=== PATIENT | female | born 1970 | race Caucasian/White ===

== ENCOUNTER 2023-03-09 08:01 | Inpatient (IN) | payer BC ==
[2023-03-09] MEDS ORDERED: Vancomycin 1 GM VIAL ONE (09:19)
[2023-03-09 09:38] LABS: #Eosinphils 0.1 thou/uL (0.0-0.7); #Monocytes 0.4 thou/uL (0.11-0.59); %Basophils 0.3 % (0.0-1.0); %Eosinophils 3.4 % (0.0-10.0); %Lymphocytes 28.6 % (21.0-51.0); %Monocytes 11.4 % (0.0-10.0); Hemoglobin 10.8 g/dL (12.0-16.0); Mean Corpuscular HGB CONC 30.9 g/dL (32.0-36.0); Mean Corpuscular Hemoglobin 23.9 pg (27.0-31.0); Mean Corpuscular Volume 77.4 fl (78.0-98.0); Mean Platelet Volume 9.5 fL (7.4-10.4); Platelet Count 203 10x3/uL (130-400); RBC Distribution Width 15.6 % (11.5-14.5); Red Blood Cell (RBC) Count 4.52 mill/uL (4.20-5.40); White Blood Cell (WBC) Count 3.5 10x3/uL (4.8-10.8)
[2023-03-09] MEDS ORDERED: HYDROmorphone 0.5 MG/0.5 ML SYRINGE ONE (09:51)
[2023-03-09] MEDS ORDERED: CEFAZOLIN 2 GM VIAL ONE (09:55)
[2023-03-09] MEDS ORDERED: Sodium Chloride 0.9% 100 ML ONE (09:55)
[2023-03-09] MEDS ORDERED: Ketamine 50 MG/ML (10ML VIAL) ONE (09:58)
[2023-03-09] MEDS ORDERED: Rocuronium Bromide 10 MG/ML (10ML VIAL) ONE (10:04)
[2023-03-09] MEDS ORDERED: PHENYLEPHRINE-NS 100 MCG/ML 10 ML SYRINGE ONE (10:04)
[2023-03-09] MEDS ORDERED: Ketorolac Tromethamine 30 MG/ML VIAL ONE (10:04)
[2023-03-09] MEDS ORDERED: ePHEDrine Sulfate 50 MG/10 ML VIAL ONE (10:04)
[2023-03-09] MEDS ORDERED: Lidocaine 1% PF 5 ML VIAL ONE (10:04)
[2023-03-09] MEDS ORDERED: PROPOFOL 200 MG/20 ML VIAL ONE (10:04)
[2023-03-09] MEDS ORDERED: Ondansetron PF 4 MG/2 ML Vial ONE (10:04)
[2023-03-09] MEDS ORDERED: Dexamethasone 20 MG/5 ML VIAL ONE (10:04)
[2023-03-09 10:06] LABS: Anion Gap 10 mmol/L (10-20); BUN (Urea Nitrogen) 15 mg/dL (9.8-20.1); Calc. Creatinine Clearance 146 mL/min (70-130); Calcium 9.7 mg/dL (7.8-10.44); Carbon Dioxide 25 mmol/L (22-29); Chloride 108 mmol/L (98-107); Estimated GFR 103; Glucose 82 mg/dL (70-105); Potassium 4.3 mmol/L (3.5-5.1); Sodium 139 mmol/L (136-145)
[2023-03-09] MEDS ORDERED: Mag-Al 1200 mg/1200 mg/30 ML UDCUP PO PRN (11:35)
[2023-03-09] MEDS ORDERED: traMADol HCl 50 MG TAB PO PRN (11:35)
[2023-03-09] MEDS ORDERED: diphenhydrAMINE 50 MG/ML VIAL IVP PRN (11:35)
[2023-03-09] MEDS ORDERED: Ondansetron PF 4 MG/2 ML Vial IVP PRN (11:35)
[2023-03-09] MEDS ORDERED: Morphine 2 MG/ML VIAL SLOW IVP PRN (11:35)
[2023-03-09] MEDS ORDERED: Promethazine 25 MG TAB PO PRN (11:35)
[2023-03-09] MEDS ORDERED: Milk Of Magnesia 30 ML UDCUP PO PRN (11:35)
[2023-03-09] MEDS ORDERED: Cyclobenzaprine 10 MG TAB PO PRN (11:35)
[2023-03-09] MEDS ORDERED: Ondansetron HCl/PF 4 MG/2 ML Vial IVP PRN (11:50)
[2023-03-09] MEDS ORDERED: HYDROmorphone 2 MG/ML VIAL SLOW IVP PRN (11:50)
[2023-03-09] MEDS ORDERED: Promethazine HCl 25 MG/ML VIAL IM PRN (11:50)
[2023-03-09] MEDS ORDERED: Meperidine HCl/PF 25 MG/ML VIAL SLOW IVP PRN (11:50)
[2023-03-09] MEDS ORDERED: PACU-Morphine 4MG/ML VIAL SLOW IVP PRN (11:50)
[2023-03-09] MEDS ORDERED: fentaNYL 50 mcg/mL 1 mL Vial ONE ×2 (12:00→12:18)
[2023-03-09] MEDS: Sodium Chloride 0.9% 1,000 ML IV SCH (14:18)
[2023-03-09 15:58] VITALS: BMI 33.3
[2023-03-09] MEDS: CEFAZOLIN 2 GM in Sodium Chloride 0.9% 100 ML IVPB SCH (16:18)
[2023-03-09] MEDS ORDERED: Acetaminophen 325 MG TAB PO PRN (17:18)
[2023-03-09] MEDS ORDERED: Sodium Chloride 0.9% 500 ML IVPB SCH (17:30)
[2023-03-09] MEDS: metFORMIN 500 MG TAB PO SCH (21:34)
[2023-03-09] MEDS: Acetaminophen/Codeine 30-300mg Tablet PO PRN (21:34)
[2023-03-10] MEDS: Sodium Chloride 0.9% 1,000 ML IV SCH ×2 (02:35→12:37)
[2023-03-10] MEDS: CEFAZOLIN 2 GM in Sodium Chloride 0.9% 100 ML IVPB SCH ×3 (02:43→18:02)
[2023-03-10] MEDS: Acetaminophen/Codeine 30-300mg Tablet PO PRN ×4 (02:43→18:01)
[2023-03-10] MEDS: Gabapentin 300 MG CAP PO SCH (09:06)
[2023-03-10] MEDS: Lisinopril 10 MG TAB PO SCH (09:07)
[2023-03-10] MEDS: Sertraline 100 MG TAB PO SCH (09:07)
[2023-03-10] MEDS: Oxybutynin ER 5 MG TAB PO SCH (09:07)
[2023-03-10] MEDS: metFORMIN 500 MG TAB PO SCH (20:43)
[2023-03-11] MEDS: CEFAZOLIN 2 GM in Sodium Chloride 0.9% 100 ML IVPB SCH ×2 (02:18→09:30)
[2023-03-11] MEDS: Acetaminophen/Codeine 30-300mg Tablet PO PRN ×2 (05:30→10:03)
[2023-03-11] MEDS: Sodium Chloride 0.9% 1,000 ML IV SCH (05:32)
[2023-03-11 05:52] VITALS: TEMP 97.6
[2023-03-11 08:33] VITALS: BP 94/61
[2023-03-11] MEDS: Gabapentin 300 MG CAP PO SCH (09:33)
[2023-03-11] MEDS: Oxybutynin ER 5 MG TAB PO SCH (09:34)
[2023-03-11] MEDS: Lisinopril 10 MG TAB PO SCH (09:35)
[2023-03-11] MEDS: Sertraline 100 MG TAB PO SCH (09:35)
== END 2023-03-11 15:00 | disposition home or self-care (01) | DRG 460 ==
LOC: SDC 08:01 → SURG B 11:39 → OBSVTOIN 03-10 10:45
PROVIDERS: ADMIT Neurological Surgery; ATTEND Neurological Surgery
PROC: 01NB0ZZ Release Lumbar Nerve, Open Approach (ICD-10-PCS; principal; 2023-03-09)
PROC: 0SG0071 Fusion of Lumbar Vertebral Joint with Autologous Tissue Substitute, Posterior Approach, Posterior Column, Open Approach (ICD-10-PCS; 2023-03-09)
PROC: 0QB00ZZ Excision of Lumbar Vertebra, Open Approach (ICD-10-PCS; 2023-03-09)
DX: M43.16 Spondylolisthesis, lumbar region (principal); G96.09 Other spinal cerebrospinal fluid leak; M48.061 Spinal stenosis, lumbar region without neurogenic claudication; Z91.040 Latex allergy status; Z90.49 Acquired absence of other specified parts of digestive tract; F41.9 Anxiety disorder, unspecified; M19.90 Unspecified osteoarthritis, unspecified site; I10 Essential (primary) hypertension; Z98.890 Other specified postprocedural states; Z79.899 Other long term (current) drug therapy
CPT/HCPCS: 36416; 80048; 85025; 93005; 93010; C1713; C1889; J1100; J1170; J1885; J2405; J2704; J3010; J3370; J3490; J7030; J7050

== ENCOUNTER 2023-03-18 15:49 | Inpatient (IN) | payer BC ==
[~2023-03-18 15:49] MED LIST: Iopamidol-370 76% 500 ML MDV (1 ML CHARGE) ONE
[2023-03-18 17:10] LABS: #Eosinphils 0.1 thou/uL (0.0-0.7); #Monocytes 0.6 thou/uL (0.11-0.59); %Basophils 0.3 % (0.0-1.0); %Eosinophils 1.5 % (0.0-10.0); %Lymphocytes 10.8 % (21.0-51.0); %Monocytes 7.4 % (0.0-10.0); %Neutrophils 79.6 % (42.0-75.0); Hematocrit 32.7 % (36.0-47.0); Hemoglobin 10.1 g/dL (12.0-16.0); Mean Corpuscular HGB CONC 30.9 g/dL (32.0-36.0); Mean Corpuscular Hemoglobin 24.1 pg (27.0-31.0); Mean Platelet Volume 8.9 fL (7.4-10.4); Platelet Count 262 10x3/uL (130-400); RBC Distribution Width 15.9 % (11.5-14.5); Red Blood Cell (RBC) Count 4.19 mill/uL (4.20-5.40); White Blood Cell (WBC) Count 7.5 10x3/uL (4.8-10.8)
[2023-03-18 17:35] LABS: ALT (SGPT) 39 U/L (8-55); AST (SGOT) 22 U/L (5-34); Albumin 4.3 g/dL (3.5-5.0); Alkaline Phosphatase 73 U/L (40-110); Anion Gap 13 mmol/L (10-20); BUN (Urea Nitrogen) 13 mg/dL (9.8-20.1); Bilirubin, Total Less than 0.2 mg/dL (0.2-1.2); Calc. Creatinine Clearance 0 mL/min (70-130); Calcium 9.8 mg/dL (7.8-10.44); Carbon Dioxide 24 mmol/L (22-29); Chloride 105 mmol/L (98-107); Estimated GFR 106; Glucose 105 mg/dL (70-105); Magnesium 1.9 mg/dL (1.6-2.6); Potassium 4.2 mmol/L (3.5-5.1); Protein, Total 6.3 g/dL (6.0-8.3); Sodium 138 mmol/L (136-145)
[2023-03-18 17:39] LABS: Troponin I Less than 0.010 ng/mL (< 0.028)
[2023-03-18 18:05] LABS: Bacteria/HPF None Seen HPF (None Seen); Bilirubin Negative (Negative); Blood, Urine Negative (Negative); CAUTI Indications for Culture Spinal Cord Injury; Clarity Clear (Clear); Glucose, Urine (Dipstick) Normal (Negative); Ketone, Urine Negative (Negative); Leukocyte Negative Leu/uL (Negative); Nitrite Negative (Negative); Protein, Urine (Dipstick) Negative (Neg-Trace); RBC/HPF 0-3 HPF (0-3); Specific Gravity, Urine 1.015 (1.002-1.036); WBC/HPF 0-3 HPF (0-3); pH, Urine 6.5 (5.0-9.0)
[2023-03-18] MEDS ORDERED: Metoclopramide HCl 10 MG/2 ML VIAL ONE (18:05)
[2023-03-18] MEDS ORDERED: diphenhydrAMINE 50 MG/ML VIAL ONE (18:05)
[2023-03-18 18:07] LABS: Urine Culture Reflex No No
[2023-03-18] MEDS ORDERED: Cephalexin 250 MG CAP ONE (18:27)
[2023-03-18] MEDS ORDERED: Acetaminophen 500 MG TAB ONE (18:28)
[2023-03-18] MEDS ORDERED: tiZANidine HCl 4 MG TAB PO SCH (18:30)
[2023-03-18 21:01] VITALS: BMI 36.6
[2023-03-18] MEDS ORDERED: Ondansetron PF 4 MG/2 ML Vial IVP PRN ×2 (21:30→21:55)
[2023-03-18] MEDS ORDERED: Ondansetron ODT 4 MG TAB SL PRN (21:30)
[2023-03-18] MEDS ORDERED: Acetaminophen 325 MG TAB PO PRN (21:30)
[2023-03-18] MEDS ORDERED: HumaLOG 300 UNITS/3 ML VIAL SC PRN ×2 (21:55)
[2023-03-18] MEDS ORDERED: Senokot S 8.6-50 MG TAB PO PRN (21:55)
[2023-03-18] MEDS ORDERED: Ondansetron ODT 4 MG TAB PO PRN (21:55)
[2023-03-18] MEDS ORDERED: hydrALAZINE 20 MG/ML VIAL SLOW IVP PRN (21:55)
[2023-03-18] MEDS ORDERED: Glucagon 1 MG/ML KIT IM PRN (21:55)
[2023-03-18] MEDS ORDERED: Aspirin Chewable 81 MG TAB PO SCH (22:30)
[2023-03-18] MEDS ORDERED: Cephalexin 250 MG CAP PO SCH (23:59)
[2023-03-19] MEDS ORDERED: Lorazepam 2 MG/ML VIAL SLOW IVP PRN (01:06)
[2023-03-19] MEDS: Acetaminophen/Codeine 30-300mg Tablet PO PRN ×3 (02:18→19:11)
[2023-03-19 05:05] LABS: #Eosinphils 0.2 thou/uL (0.0-0.7); #Monocytes 0.6 thou/uL (0.11-0.59); #Neutrophils 3.3 thou/uL (1.40-6.50); %Basophils 0.7 % (0.0-1.0); %Eosinophils 3.6 % (0.0-10.0); %Lymphocytes 25.9 % (21.0-51.0); %Monocytes 10.5 % (0.0-10.0); %Neutrophils 58.8 % (42.0-75.0); Hematocrit 29.5 % (36.0-47.0); Hemoglobin 9.2 g/dL (12.0-16.0); Mean Corpuscular HGB CONC 31.2 g/dL (32.0-36.0); Mean Corpuscular Hemoglobin 24.2 pg (27.0-31.0); Mean Corpuscular Volume 77.6 fl (78.0-98.0); Mean Platelet Volume 9.7 fL (7.4-10.4); Platelet Count 269 10x3/uL (130-400); RBC Distribution Width 15.9 % (11.5-14.5); White Blood Cell (WBC) Count 5.6 10x3/uL (4.8-10.8)
[2023-03-19 05:32] LABS: Iron 17 ug/dL (50-170); Iron Binding Capacity, Total 359 mcg/dL (265-497)
[2023-03-19 05:33] LABS: Anion Gap 12 mmol/L (10-20); BUN (Urea Nitrogen) 11 mg/dL (9.8-20.1); Calc. Creatinine Clearance 160 mL/min (70-130); Calcium 9.9 mg/dL (7.8-10.44); Carbon Dioxide 23 mmol/L (22-29); Chloride 106 mmol/L (98-107); Estimated GFR 106; Glucose 86 mg/dL (70-105); Potassium 3.9 mmol/L (3.5-5.1); Sodium 137 mmol/L (136-145)
[2023-03-19] MEDS ORDERED: Lorazepam 2 MG/ML VIAL SLOW IVP SCH ×2 (09:00)
[2023-03-19] MEDS ORDERED: Polyethylene Glycol 3350 17 GM Packet PO SCH (09:00)
[2023-03-19] MEDS ORDERED: FLU VACC QS2023-24(6MOS UP)/PF 60 MCG/0.5 ML SYRINGE IM ONE ×2 (09:00→15:53)
[2023-03-19] MEDS: Oxybutynin ER 5 MG TAB PO SCH (09:45)
[2023-03-19] MEDS: Gabapentin 300 MG CAP PO SCH (09:46)
[2023-03-19] MEDS: Aspirin 81 mg Enteric Coated Tablet PO SCH (09:46)
[2023-03-19] MEDS: Cephalexin 250 MG CAP PO SCH ×4 (09:46→20:21)
[2023-03-19] MEDS: Cholecalciferol 1,000 UNITS (25 MCG) TAB PO SCH (09:46)
[2023-03-19] MEDS: Loratadine 10 MG TAB PO SCH (09:46)
[2023-03-19] MEDS: Topiramate 25 MG TAB PO SCH (14:04)
[2023-03-19] MEDS: Sertraline 100 MG TAB PO SCH (20:20)
[2023-03-19] MEDS: metFORMIN XR 500 MG ER.TAB PO SCH (20:21)
[2023-03-19] MEDS: Acetaminophen 325 MG TAB PO PRN (20:21)
[2023-03-19] MEDS: tiZANidine HCl 4 MG TAB PO PRN (23:36)
[2023-03-20] MEDS: Acetaminophen/Codeine 30-300mg Tablet PO PRN ×3 (01:24→21:40)
[2023-03-20 04:10] LABS: #Eosinphils 0.2 thou/uL (0.0-0.7); #Monocytes 0.5 thou/uL (0.11-0.59); #Neutrophils 3.3 thou/uL (1.40-6.50); %Basophils 0.5 % (0.0-1.0); %Eosinophils 3.1 % (0.0-10.0); %Lymphocytes 29.2 % (21.0-51.0); %Neutrophils 57.7 % (42.0-75.0); Hematocrit 31.9 % (36.0-47.0); Hemoglobin 9.6 g/dL (12.0-16.0); Mean Corpuscular HGB CONC 30.1 g/dL (32.0-36.0); Mean Corpuscular Hemoglobin 23.4 pg (27.0-31.0); Mean Corpuscular Volume 77.8 fl (78.0-98.0); Mean Platelet Volume 9.3 fL (7.4-10.4); Platelet Count 304 10x3/uL (130-400); White Blood Cell (WBC) Count 5.8 10x3/uL (4.8-10.8)
[2023-03-20 04:34] LABS: Anion Gap 12 mmol/L (10-20); BUN (Urea Nitrogen) 10 mg/dL (9.8-20.1); Calc. Creatinine Clearance 153 mL/min (70-130); Calcium 10.3 mg/dL (7.8-10.44); Carbon Dioxide 25 mmol/L (22-29); Chloride 105 mmol/L (98-107); Estimated GFR 104; Glucose 102 mg/dL (70-105); Potassium 3.8 mmol/L (3.5-5.1); Sodium 138 mmol/L (136-145)
[2023-03-20] MEDS: Acetaminophen 325 MG TAB PO PRN (06:36)
[2023-03-20] MEDS: Gabapentin 300 MG CAP PO SCH (10:03)
[2023-03-20] MEDS: Cephalexin 250 MG CAP PO SCH ×4 (10:04→21:38)
[2023-03-20] MEDS: Cholecalciferol 1,000 UNITS (25 MCG) TAB PO SCH (10:04)
[2023-03-20] MEDS: Loratadine 10 MG TAB PO SCH (10:06)
[2023-03-20] MEDS: Aspirin 81 mg Enteric Coated Tablet PO SCH (10:06)
[2023-03-20] MEDS: Oxybutynin ER 5 MG TAB PO SCH (10:06)
[2023-03-20] MEDS: Topiramate 25 MG TAB PO SCH (13:32)
[2023-03-20] MEDS: tiZANidine HCl 4 MG TAB PO PRN (13:32)
[2023-03-20] MEDS ORDERED: Morphine 4 MG/ML VIAL SLOW IVP PRN (14:12)
[2023-03-20] MEDS ORDERED: Dexamethasone 10 MG/ML VIAL SLOW IVP SCH (14:30)
[2023-03-20] MEDS: Dexamethasone 4 mg/ml Vial SLOW IVP SCH (21:37)
[2023-03-20] MEDS: metFORMIN XR 500 MG ER.TAB PO SCH (21:39)
[2023-03-20] MEDS: Sertraline 100 MG TAB PO SCH (21:40)
[2023-03-21] MEDS: tiZANidine HCl 4 MG TAB PO PRN ×2 (00:24→07:55)
[2023-03-21] MEDS: Dexamethasone 4 mg/ml Vial SLOW IVP SCH ×2 (03:24→09:25)
[2023-03-21] MEDS: Acetaminophen/Codeine 30-300mg Tablet PO PRN ×2 (03:24→12:06)
[2023-03-21 05:29] LABS: #Monocytes 0.3 thou/uL (0.11-0.59); #Neutrophils 6.7 thou/uL (1.40-6.50); %Basophils 0.1 % (0.0-1.0); %Lymphocytes 8.4 % (21.0-51.0); %Monocytes 4.2 % (0.0-10.0); %Neutrophils 86.8 % (42.0-75.0); Hematocrit 32.8 % (36.0-47.0); Mean Corpuscular HGB CONC 30.5 g/dL (32.0-36.0); Mean Corpuscular Hemoglobin 23.6 pg (27.0-31.0); Mean Corpuscular Volume 77.4 fl (78.0-98.0); Mean Platelet Volume 9.2 fL (7.4-10.4); Platelet Count 374 10x3/uL (130-400); RBC Distribution Width 15.8 % (11.5-14.5); Red Blood Cell (RBC) Count 4.24 mill/uL (4.20-5.40); White Blood Cell (WBC) Count 7.7 10x3/uL (4.8-10.8)
[2023-03-21 05:52] LABS: Anion Gap 12 mmol/L (10-20); BUN (Urea Nitrogen) 10 mg/dL (9.8-20.1); Calc. Creatinine Clearance 143 mL/min (70-130); Calcium 10.6 mg/dL (7.8-10.44); Carbon Dioxide 20 mmol/L (22-29); Chloride 105 mmol/L (98-107); Estimated GFR 100; Glucose 175 mg/dL (70-105); Potassium 4.2 mmol/L (3.5-5.1); Sodium 133 mmol/L (136-145)
[2023-03-21] MEDS: Loratadine 10 MG TAB PO SCH (09:24)
[2023-03-21] MEDS: Cholecalciferol 1,000 UNITS (25 MCG) TAB PO SCH (09:25)
[2023-03-21] MEDS: Oxybutynin ER 5 MG TAB PO SCH (09:25)
[2023-03-21] MEDS: Gabapentin 300 MG CAP PO SCH (09:25)
[2023-03-21 11:47] VITALS: BP 109/55; TEMP 97.7
[2023-03-21] MEDS: Topiramate 25 MG TAB PO SCH (12:11)
== END 2023-03-21 13:53 | disposition home or self-care (01) | DRG 312 ==
LOC: ERS 15:49 → 2SE 18:50 → OBSVTOIN 03-21 12:06
PROVIDERS: ADMIT Internal Medicine; ATTEND Hospitalist
DX: R55 Syncope and collapse (principal); E87.1 Hypo-osmolality and hyponatremia; R42 Dizziness and giddiness; R73.9 Hyperglycemia, unspecified; S09.90XA Unspecified injury of head, initial encounter; I10 Essential (primary) hypertension; M06.9 Rheumatoid arthritis, unspecified; R39.15 Urgency of urination; M19.90 Unspecified osteoarthritis, unspecified site; F41.9 Anxiety disorder, unspecified; F32.A Depression, unspecified; E04.1 Nontoxic single thyroid nodule; M25.551 Pain in right hip; W18.30XA Fall on same level, unspecified, initial encounter; M54.9 Dorsalgia, unspecified; D53.9 Nutritional anemia, unspecified; Z79.899 Other long term (current) drug therapy; Z98.1 Arthrodesis status; Z91.040 Latex allergy status; Z91.018 Allergy to other foods; Z88.8 Allergy status to other drugs, medicaments and biological substances; Z88.3 Allergy status to other anti-infective agents; Z82.49 Family history of ischemic heart disease and other diseases of the circulatory system
CPT/HCPCS: 36415; 36416; 70450; 70551; 71045; 71275; 72131; 80048; 80053; 81001; 82728; 83540; 83550; 83735; 84484; 85025; 85379; 90471; 90686; 93005; 93306; 95711; 95819; 95957; 96365; 96375; 96376; G0008; G0378; J1100; J1200; J2060; J2765; Q9967

== ENCOUNTER 2023-04-05 19:47 | Inpatient (IN) | payer BC ==
[2023-04-05 20:48] LABS: #Eosinphils 0.1 thou/uL (0.0-0.7); #Monocytes 0.7 thou/uL (0.11-0.59); #Neutrophils 5.3 thou/uL (1.40-6.50); %Basophils 0.4 % (0.0-1.0); %Eosinophils 1.7 % (0.0-10.0); %Lymphocytes 16.9 % (21.0-51.0); %Monocytes 9.4 % (0.0-10.0); %Neutrophils 71.3 % (42.0-75.0); Hematocrit 37.4 % (36.0-47.0); Hemoglobin 11.7 g/dL (12.0-16.0); Mean Corpuscular HGB CONC 31.3 g/dL (32.0-36.0); Mean Corpuscular Hemoglobin 23.3 pg (27.0-31.0); Mean Corpuscular Volume 74.5 fl (78.0-98.0); Mean Platelet Volume 8.6 fL (7.4-10.4); Platelet Count 282 10x3/uL (130-400); RBC Distribution Width 15.7 % (11.5-14.5); Red Blood Cell (RBC) Count 5.02 mill/uL (4.20-5.40); White Blood Cell (WBC) Count 7.5 10x3/uL (4.8-10.8)
[2023-04-05 21:10] LABS: ALT (SGPT) 12 U/L (8-55); AST (SGOT) 13 U/L (5-34); Alkaline Phosphatase 61 U/L (40-110); Anion Gap 15 mmol/L (10-20); BUN (Urea Nitrogen) 13 mg/dL (9.8-20.1); Bilirubin, Total 0.5 mg/dL (0.2-1.2); Calc. Creatinine Clearance 0 mL/min (70-130); Calcium 11.2 mg/dL (7.8-10.44); Carbon Dioxide 25 mmol/L (22-29); Chloride 102 mmol/L (98-107); Estimated GFR 97; Globulin 2.4 g/dL (2.4-3.5); Glucose 91 mg/dL (70-105); Potassium 3.9 mmol/L (3.5-5.1); Protein, Total 7.4 g/dL (6.0-8.3); Sodium 138 mmol/L (136-145)
[2023-04-05 21:43] LABS: Anisocytosis SLIGHT = 6-15 cells HPF (0-5); CellaVision Operator ID LAB.JMM; Elliptocytes SLIGHT = 2-5 cells HPF (0-1); Platelet Adequacy Comment Platelets Normal; Polychromasia SLIGHT = 2-3 cells HPF (0-2)
[2023-04-05] MEDS ORDERED: Ondansetron PF 4 MG/2 ML Vial ONE (21:57)
[2023-04-05] MEDS ORDERED: Morphine 4 MG/ML VIAL ONE (21:57)
[2023-04-05] MEDS ORDERED: Acetaminophen 500 MG TAB ONE (21:57)
[2023-04-05] MEDS ORDERED: HYDROmorphone 0.5 MG/0.5 ML SYRINGE ONE (22:58)
[2023-04-06] MEDS ORDERED: Ondansetron PF 4 MG/2 ML Vial IVP PRN (00:30)
[2023-04-06] MEDS ORDERED: Ondansetron ODT 4 MG TAB SL PRN (00:30)
[2023-04-06] MEDS ORDERED: Acetaminophen 325 MG TAB PO PRN (00:30)
[2023-04-06 02:23] VITALS: BMI 35.6
[2023-04-06] MEDS ORDERED: Lorazepam 2 MG/ML VIAL SLOW IVP SCH (02:30)
[2023-04-06] MEDS ORDERED: Ketorolac Tromethamine 30 MG/ML VIAL IVP SCH (02:30)
[2023-04-06] MEDS: Famotidine 20 MG TAB PO SCH ×2 (07:59→23:30)
[2023-04-06] MEDS: Famotidine/PF 20 mg/2ml Vial SLOW IVP SCH ×2 (08:42→23:31)
[2023-04-06] MEDS ORDERED: Sodium Chloride 0.9% 1,000 ML IV SCH ×2 (09:15)
[2023-04-06 10:51] LABS: #Monocytes 1.2 thou/uL (0.11-0.59); #Neutrophils 15.1 thou/uL (1.40-6.50); %Basophils 0.2 % (0.0-1.0); %Lymphocytes 3.7 % (21.0-51.0); %Monocytes 7.2 % (0.0-10.0); %Neutrophils 88.4 % (42.0-75.0); Hematocrit 37.3 % (36.0-47.0); Hemoglobin 11.3 g/dL (12.0-16.0); Mean Corpuscular HGB CONC 30.3 g/dL (32.0-36.0); Mean Corpuscular Hemoglobin 23.5 pg (27.0-31.0); Mean Platelet Volume 10.9 fL (7.4-10.4); Platelet Count 219 10x3/uL (130-400); RBC Distribution Width 16.2 % (11.5-14.5); White Blood Cell (WBC) Count 17.1 10x3/uL (4.8-10.8)
[2023-04-06 11:11] LABS: Anion Gap 18 mmol/L (10-20); BUN (Urea Nitrogen) 11 mg/dL (9.8-20.1); Calc. Creatinine Clearance 144 mL/min (70-130); Calcium 10.7 mg/dL (7.8-10.44); Carbon Dioxide 17 mmol/L (22-29); Chloride 105 mmol/L (98-107); Estimated GFR 104; Glucose 151 mg/dL (70-105); Potassium 4.5 mmol/L (3.5-5.1); Sodium 135 mmol/L (136-145)
[2023-04-06 11:24] LABS: Bacteria/HPF None Seen HPF (None Seen); Bilirubin Negative (Negative); Blood, Urine Negative (Negative); CAUTI Indications for Culture Spinal Cord Injury; Clarity Clear (Clear); Glucose, Urine (Dipstick) Normal (Negative); Ketone, Urine 10 mg/dL (Negative); Leukocyte Negative Leu/uL (Negative); Nitrite Negative (Negative); Protein, Urine (Dipstick) Negative (Neg-Trace); RBC/HPF 0-3 HPF (0-3); Squamous Epithelial 0-3 HPF (0-3); Urobilinogen Normal mg/dL (Less than 2); WBC/HPF 0-3 HPF (0-3)
[2023-04-06 11:33] LABS: Urine Culture Reflex No No
[2023-04-06 11:51] LABS: Mean Corpuscular Volume 77.7 fl (78.0-98.0)
[2023-04-06] MEDS ORDERED: Non-Formulary Item 1 EACH (Topiramate [Topiramate] 50 MG Tablet) PO SCH (12:00)
[2023-04-06] MEDS ORDERED: Non-Formulary Item 1 EACH (Cephalexin [Keflex] 500 MG Cap) PO SCH (13:00)
[2023-04-06] MEDS ORDERED: CEFAZOLIN 2 GM in Sodium Chloride 0.9% 100 ML IVPB SCH (14:00)
[2023-04-06] MEDS ORDERED: Vancomycin 1 GM in Premix 1 BAG IVPB SCH (14:00)
[2023-04-06] MEDS: Topiramate 25 MG TAB PO SCH (14:04)
[2023-04-06] MEDS ORDERED: Vancomycin (BATCH) 2 GM in Premix 1 BAG IVPB SCH (14:15)
[2023-04-06 14:46] LABS: ALT (SGPT) 41 U/L (8-55); AST (SGOT) 44 U/L (5-34); Albumin 4.5 g/dL (3.5-5.0); Alkaline Phosphatase 56 U/L (40-110); Bilirubin, Direct 0.2 mg/dL (0.1-0.3); Bilirubin, Total 0.6 mg/dL (0.2-1.2); Protein, Total 7.2 g/dL (6.0-8.3)
[2023-04-06] MEDS: cefTRIAXone\\ROCEPHIN 2 GM in Sodium Chloride 0.9% 100 ML IVPB SCH (15:00)
[2023-04-06] MEDS ORDERED: Lorazepam 2 MG/ML VIAL SLOW IVP PRN (15:14)
[2023-04-06 17:03] LABS: #Monocytes 0.9 thou/uL (0.11-0.59); %Basophils 0.1 % (0.0-1.0); %Lymphocytes 4.3 % (21.0-51.0); %Monocytes 6.8 % (0.0-10.0); %Neutrophils 88.4 % (42.0-75.0); Hematocrit 32.2 % (36.0-47.0); Hemoglobin 9.9 g/dL (12.0-16.0); Mean Corpuscular HGB CONC 30.7 g/dL (32.0-36.0); Mean Corpuscular Hemoglobin 23.4 pg (27.0-31.0); Mean Corpuscular Volume 76.1 fl (78.0-98.0); Platelet Count 219 10x3/uL (130-400); Red Blood Cell (RBC) Count 4.23 mill/uL (4.20-5.40); White Blood Cell (WBC) Count 13.6 10x3/uL (4.8-10.8)
[2023-04-06] MEDS: Acetaminophen 650 MG Suppository PR PRN ×2 (17:24→21:35)
[2023-04-06 17:41] LABS: Troponin I Less than 0.010 ng/mL (< 0.028)
[2023-04-06] MEDS: SODIUM CHLORIDE 0.9% IVPB SCH (17:42)
[2023-04-06] MEDS: ACYCLOVIR SODIUM IVPB SCH (17:42)
[2023-04-06] MEDS ORDERED: Lorazepam 2 MG/ML VIAL IM SCH (18:45)
[2023-04-06] MEDS ORDERED: metFORMIN XR 500 MG ER.TAB PO SCH (21:00)
[2023-04-06] MEDS ORDERED: Non-Formulary Item 1 EACH (Gabapentin [Neurontin] 600 MG Tablet) PO SCH (21:00)
[2023-04-06] MEDS ORDERED: Vancomycin 1 GM in Sodium Chloride 0.9% 250 ML 250 ML IVPB SCH (21:00)
[2023-04-06 23:24] LABS: Troponin I Less than 0.010 ng/mL (< 0.028)
[2023-04-06] MEDS: Gabapentin 300 MG CAP PO SCH (23:31)
[2023-04-06] MEDS: Sertraline 100 MG TAB PO SCH (23:31)
[2023-04-06] MEDS: Acyclovir Sodium 570 MG in Sodium Chloride 0.9% 100 ML IVPB SCH (23:39)
[2023-04-07] MEDS: Sodium Chloride 0.9% 1,000 ML IV SCH ×4 (01:03→19:22)
[2023-04-07] MEDS: ACYCLOVIR SODIUM IVPB SCH (01:08)
[2023-04-07] MEDS: SODIUM CHLORIDE 0.9% IVPB SCH (01:08)
[2023-04-07] MEDS: cefTRIAXone\\ROCEPHIN 2 GM in Sodium Chloride 0.9% 100 ML IVPB SCH (01:10)
[2023-04-07] MEDS: Acyclovir Sodium 570 MG in Sodium Chloride 0.9% 100 ML IVPB SCH ×4 (02:05→23:56)
[2023-04-07] MEDS ORDERED: Morphine 2 MG/ML VIAL SLOW IVP SCH (03:00)
[2023-04-07] MEDS ORDERED: Ketorolac Tromethamine 30 MG/ML VIAL IVP SCH (03:45)
[2023-04-07] MEDS: Vancomycin (BATCH) 1.75 GM in Premix 1 BAG IVPB SCH ×2 (05:08→19:22)
[2023-04-07 05:28] LABS: #Neutrophils 9.8 thou/uL (1.40-6.50); %Basophils 0.1 % (0.0-1.0); %Lymphocytes 6.3 % (21.0-51.0); %Monocytes 8.4 % (0.0-10.0); %Neutrophils 84.6 % (42.0-75.0); Hematocrit 29.2 % (36.0-47.0); Mean Corpuscular HGB CONC 30.8 g/dL (32.0-36.0); Mean Corpuscular Hemoglobin 23.3 pg (27.0-31.0); Mean Corpuscular Volume 75.6 fl (78.0-98.0); Mean Platelet Volume 9.5 fL (7.4-10.4); Platelet Count 231 10x3/uL (130-400); RBC Distribution Width 16.1 % (11.5-14.5); Red Blood Cell (RBC) Count 3.86 mill/uL (4.20-5.40); White Blood Cell (WBC) Count 11.6 10x3/uL (4.8-10.8)
[2023-04-07 06:09] LABS: ALT (SGPT) 25 U/L (8-55); AST (SGOT) 14 U/L (5-34); Albumin 3.8 g/dL (3.5-5.0); Alkaline Phosphatase 48 U/L (40-110); Anion Gap 13 mmol/L (10-20); BUN (Urea Nitrogen) 10 mg/dL (9.8-20.1); Bilirubin, Direct 0.3 mg/dL (0.1-0.3); Bilirubin, Total 0.5 mg/dL (0.2-1.2); Calc. Creatinine Clearance 153 mL/min (70-130); Carbon Dioxide 21 mmol/L (22-29); Chloride 109 mmol/L (98-107); Estimated GFR 105; Glucose 117 mg/dL (70-105); Magnesium 1.9 mg/dL (1.6-2.6); Potassium 3.3 mmol/L (3.5-5.1); Sodium 140 mmol/L (136-145)
[2023-04-07] MEDS ORDERED: Morphine 2 MG/ML VIAL SLOW IVP PRN (08:17)
[2023-04-07] MEDS ORDERED: Potassium Chloride 20 MEQ in Premix 1 BAG IVPB SCH (08:30)
[2023-04-07] MEDS ORDERED: Fentanyl 250 MCG/5 ML VIAL ONE (08:54)
[2023-04-07] MEDS ORDERED: Midazolam HCl 5 mg/ml Vial ONE (08:55)
[2023-04-07] MEDS ORDERED: Non-Formulary Item 1 EACH (Mv-Mn/Folic Ac/Calcium/Vit K1 [Women's 50 Plus Multivit Tab] 1 PO SCH (09:00)
[2023-04-07] MEDS ORDERED: Oxybutynin ER 5 MG TAB PO SCH (09:00)
[2023-04-07] MEDS ORDERED: Non-Formulary Item 1 EACH (Cholecalciferol (Vitamin D3) [Vitamin D3] 50 MCG Tablet) PO SCH (09:00)
[2023-04-07] MEDS ORDERED: SUGAMMADEX SODIUM 200 MG/2 ML VIAL ONE (09:05)
[2023-04-07] MEDS ORDERED: Rocuronium Bromide 10 MG/ML (10ML VIAL) ONE (09:27)
[2023-04-07] MEDS ORDERED: PROPOFOL 200 MG/20 ML VIAL ONE (09:27)
[2023-04-07] MEDS: Gabapentin 300 MG CAP PO SCH ×2 (12:54→20:04)
[2023-04-07] MEDS: Topiramate 25 MG TAB PO SCH (12:54)
[2023-04-07] MEDS: Cholecalciferol 1,000 UNITS (25 MCG) TAB PO SCH (12:54)
[2023-04-07] MEDS: Famotidine/PF 20 mg/2ml Vial SLOW IVP SCH ×2 (12:55→21:06)
[2023-04-07] MEDS: Multivitamin W/ Minerals 1 TAB PO SCH (12:55)
[2023-04-07] MEDS: Famotidine 20 MG TAB PO SCH ×2 (12:55→20:05)
[2023-04-07 13:19] LABS: CSF, Glucose 8 mg/dl (40-70); CSF, Protein 170 mg/dL (15-40)
[2023-04-07] MEDS ORDERED: Magnevist 469MG/ML 20 ML VIAL ONE ×2 (13:58→15:09)
[2023-04-07 14:25] LABS: CSF Source CSF; Clarity Hazy (Clear); Tube # 4
[2023-04-07 14:27] LABS: Cell Count Non Hematic 8 %; Lymphocytes 11 %
[2023-04-07 14:33] LABS: Segmented Neutrophils 81 %
[2023-04-07] MEDS: Acetaminophen 325 MG TAB PO PRN ×2 (16:39→22:10)
[2023-04-07] MEDS: Cefepime 2 GM in Sodium Chloride 0.9% 100 ML IVPB SCH ×2 (17:41→22:10)
[2023-04-07] MEDS: Sertraline 100 MG TAB PO SCH (20:04)
[2023-04-07] MEDS ORDERED: Fluconazole 100 MG TAB PO SCH (20:15)
[2023-04-08] MEDS ORDERED: Ketorolac Tromethamine 30 MG/ML VIAL IVP SCH (02:30)
[2023-04-08] MEDS: Acetaminophen 325 MG TAB PO PRN (03:03)
[2023-04-08] MEDS: Sodium Chloride 0.9% 1,000 ML IV SCH ×3 (03:05→15:32)
[2023-04-08] MEDS: Cefepime 2 GM in Sodium Chloride 0.9% 100 ML IVPB SCH ×2 (05:16→14:23)
[2023-04-08 05:48] LABS: #Eosinphils 0.1 thou/uL (0.0-0.7); #Monocytes 0.6 thou/uL (0.11-0.59); #Neutrophils 5.7 thou/uL (1.40-6.50); %Basophils 0.3 % (0.0-1.0); %Eosinophils 0.8 % (0.0-10.0); %Monocytes 8.3 % (0.0-10.0); %Neutrophils 77.2 % (42.0-75.0); Hematocrit 26.7 % (36.0-47.0); Mean Corpuscular Volume 76.7 fl (78.0-98.0); Mean Platelet Volume 9.5 fL (7.4-10.4); Platelet Count 176 10x3/uL (130-400); RBC Distribution Width 16.3 % (11.5-14.5); Red Blood Cell (RBC) Count 3.48 mill/uL (4.20-5.40); White Blood Cell (WBC) Count 7.4 10x3/uL (4.8-10.8)
[2023-04-08] MEDS ORDERED: Lidocaine 1% (PF) 30 ML VIAL ONE (06:10)
[2023-04-08] MEDS ORDERED: Acetaminophen 325 MG TAB PO SCH (07:00)
[2023-04-08 08:02] LABS: Vancomycin, Trough 14.8 ug/mL
[2023-04-08] MEDS: Vancomycin (BATCH) 1.75 GM in Premix 1 BAG IVPB SCH (08:19)
[2023-04-08] MEDS: Famotidine 20 MG TAB PO SCH ×2 (08:23→20:19)
[2023-04-08] MEDS: Gabapentin 300 MG CAP PO SCH ×2 (08:25→20:18)
[2023-04-08] MEDS: Acetaminophen 500 MG TAB PO PRN ×3 (08:26→20:21)
[2023-04-08] MEDS: Cholecalciferol 1,000 UNITS (25 MCG) TAB PO SCH (08:27)
[2023-04-08 08:29] LABS: Anion Gap 12 mmol/L (10-20); BUN (Urea Nitrogen) 12 mg/dL (9.8-20.1); Calc. Creatinine Clearance 161 mL/min (70-130); Calcium 9.5 mg/dL (7.8-10.44); Carbon Dioxide 19 mmol/L (22-29); Chloride 110 mmol/L (98-107); Estimated GFR 106; Glucose 99 mg/dL (70-105); Potassium 3.4 mmol/L (3.5-5.1); Sodium 138 mmol/L (136-145)
[2023-04-08] MEDS ORDERED: Vancomycin HCl 250 MG in Sodium Chloride 0.9% 100 ML IVPB SCH (08:45)
[2023-04-08] MEDS ORDERED: Ondansetron ORAL SOLN. 4 MG/5 ML UDCUP PO PRN (09:04)
[2023-04-08] MEDS ORDERED: Ondansetron PF 4 MG/2 ML Vial IVP PRN (09:04)
[2023-04-08] MEDS: Famotidine/PF 20 mg/2ml Vial SLOW IVP SCH ×2 (09:57→20:20)
[2023-04-08] MEDS ORDERED: Potassium Chloride 10 MEQ TAB PO SCH (11:00)
[2023-04-08] MEDS: Potassium Chloride 10 MEQ TAB PO SCH ×2 (11:05→18:02)
[2023-04-08] MEDS: Acyclovir Sodium 570 MG in Sodium Chloride 0.9% 100 ML IVPB SCH ×2 (11:24→15:25)
[2023-04-08] MEDS: Topiramate 25 MG TAB PO SCH (11:24)
[2023-04-08] MEDS: Multivitamin W/ Minerals 1 TAB PO SCH (14:29)
[2023-04-08] MEDS ORDERED: fentaNYL 50 mcg/mL 1 mL Vial SLOW IVP SCH (15:30)
[2023-04-08] MEDS: HYDROcodone/Acetaminophen 7.5/325 mg Tablet PO PRN (17:10)
[2023-04-08] MEDS: Butalbital 50 MG/Aspirin 325 MG/Caffeine 40 MG CAPSULE PO PRN (17:10)
[2023-04-08] MEDS: Sertraline 100 MG TAB PO SCH (20:19)
[2023-04-08] MEDS: Miconazole 2% Vaginal Cream 45 GM TUBE VAG SCH (20:20)
[2023-04-08] MEDS ORDERED: Metoclopramide HCl 10 MG/2 ML VIAL IVP SCH (22:00)
[2023-04-08] MEDS ORDERED: diphenhydrAMINE 50 MG/ML VIAL IVP SCH (22:00)
[2023-04-08] MEDS: Vancomycin (BATCH) 2 GM in Premix 1 BAG IVPB SCH (22:20)
[2023-04-09] MEDS: Cefepime 2 GM in Sodium Chloride 0.9% 100 ML IVPB SCH ×4 (00:32→21:34)
[2023-04-09] MEDS: Acyclovir Sodium 570 MG in Sodium Chloride 0.9% 100 ML IVPB SCH (01:26)
[2023-04-09] MEDS: Sodium Chloride 0.9% 1,000 ML IV SCH ×4 (01:27→23:27)
[2023-04-09] MEDS: HYDROcodone/Acetaminophen 7.5/325 mg Tablet PO PRN ×4 (01:33→23:27)
[2023-04-09] MEDS: Butalbital 50 MG/Aspirin 325 MG/Caffeine 40 MG CAPSULE PO PRN ×3 (01:50→21:35)
[2023-04-09 04:57] LABS: #Eosinphils 0.1 thou/uL (0.0-0.7); #Monocytes 0.4 thou/uL (0.11-0.59); #Neutrophils 3.7 thou/uL (1.40-6.50); %Basophils 0.4 % (0.0-1.0); %Eosinophils 1.8 % (0.0-10.0); %Monocytes 7.9 % (0.0-10.0); %Neutrophils 73.5 % (42.0-75.0); Hematocrit 27.1 % (36.0-47.0); Hemoglobin 8.3 g/dL (12.0-16.0); Mean Corpuscular HGB CONC 30.6 g/dL (32.0-36.0); Mean Corpuscular Hemoglobin 23.5 pg (27.0-31.0); Mean Corpuscular Volume 76.8 fl (78.0-98.0); Mean Platelet Volume 10.2 fL (7.4-10.4); Platelet Count 189 10x3/uL (130-400); RBC Distribution Width 16.2 % (11.5-14.5); Red Blood Cell (RBC) Count 3.53 mill/uL (4.20-5.40); White Blood Cell (WBC) Count 5.1 10x3/uL (4.8-10.8)
[2023-04-09] MEDS ORDERED: diphenhydrAMINE 50 MG/ML VIAL IVP SCH (05:15)
[2023-04-09] MEDS ORDERED: Metoclopramide HCl 10 MG/2 ML VIAL IVP SCH (05:15)
[2023-04-09 05:28] LABS: Anion Gap 10 mmol/L (10-20); BUN (Urea Nitrogen) 8 mg/dL (9.8-20.1); Calc. Creatinine Clearance 163 mL/min (70-130); Calcium 9.4 mg/dL (7.8-10.44); Carbon Dioxide 21 mmol/L (22-29); Chloride 112 mmol/L (98-107); Estimated GFR 107; Glucose 98 mg/dL (70-105); Magnesium 1.9 mg/dL (1.6-2.6); Potassium 3.1 mmol/L (3.5-5.1); Sodium 140 mmol/L (136-145)
[2023-04-09] MEDS: Gabapentin 300 MG CAP PO SCH ×2 (08:28→21:36)
[2023-04-09] MEDS: Famotidine 20 MG TAB PO SCH ×2 (08:29→21:37)
[2023-04-09] MEDS: Multivitamin W/ Minerals 1 TAB PO SCH (08:29)
[2023-04-09] MEDS: Cholecalciferol 1,000 UNITS (25 MCG) TAB PO SCH (08:29)
[2023-04-09] MEDS: Vancomycin (BATCH) 2 GM in Premix 1 BAG IVPB SCH (09:22)
[2023-04-09] MEDS: Potassium Chloride 10 MEQ TAB PO SCH (09:23)
[2023-04-09] MEDS: Famotidine/PF 20 mg/2ml Vial SLOW IVP SCH ×2 (09:35→21:38)
[2023-04-09] MEDS: hydrOXYzine 25 MG TAB PO PRN (09:50)
[2023-04-09] MEDS ORDERED: Potassium Chloride 20 MEQ TAB PO SCH (13:00)
[2023-04-09] MEDS: Topiramate 25 MG TAB PO SCH (14:28)
[2023-04-09 19:39] LABS: Vancomycin, Trough 20.6 ug/mL
[2023-04-09] MEDS: Sertraline 100 MG TAB PO SCH (21:36)
[2023-04-09] MEDS: Miconazole 2% Vaginal Cream 45 GM TUBE VAG SCH (21:38)
[2023-04-10] MEDS: Butalbital 50 MG/Aspirin 325 MG/Caffeine 40 MG CAPSULE PO PRN ×4 (02:31→19:26)
[2023-04-10 03:55] LABS: #Eosinphils 0.3 thou/uL (0.0-0.7); #Monocytes 0.7 thou/uL (0.11-0.59); #Neutrophils 3.8 thou/uL (1.40-6.50); %Basophils 0.5 % (0.0-1.0); %Eosinophils 4.1 % (0.0-10.0); %Lymphocytes 23.3 % (21.0-51.0); %Monocytes 10.9 % (0.0-10.0); %Neutrophils 60.6 % (42.0-75.0); Hemoglobin 8.2 g/dL (12.0-16.0); Mean Corpuscular HGB CONC 30.4 g/dL (32.0-36.0); Mean Corpuscular Hemoglobin 23.7 pg (27.0-31.0); Mean Platelet Volume 9.7 fL (7.4-10.4); Platelet Count 190 10x3/uL (130-400); RBC Distribution Width 16.3 % (11.5-14.5); Red Blood Cell (RBC) Count 3.46 mill/uL (4.20-5.40); White Blood Cell (WBC) Count 6.3 10x3/uL (4.8-10.8)
[2023-04-10 04:25] LABS: Anion Gap 11 mmol/L (10-20); BUN (Urea Nitrogen) 7 mg/dL (9.8-20.1); Calc. Creatinine Clearance 158 mL/min (70-130); Carbon Dioxide 22 mmol/L (22-29); Chloride 113 mmol/L (98-107); Estimated GFR 106; Glucose 89 mg/dL (70-105); Magnesium 1.9 mg/dL (1.6-2.6); Potassium 3.5 mmol/L (3.5-5.1); Sodium 142 mmol/L (136-145)
[2023-04-10] MEDS: Cefepime 2 GM in Sodium Chloride 0.9% 100 ML IVPB SCH ×3 (05:22→21:23)
[2023-04-10] MEDS: HYDROcodone/Acetaminophen 7.5/325 mg Tablet PO PRN ×3 (05:27→18:37)
[2023-04-10] MEDS: hydrOXYzine 25 MG TAB PO PRN ×2 (05:27→21:26)
[2023-04-10] MEDS: Gabapentin 300 MG CAP PO SCH ×2 (08:48→21:21)
[2023-04-10] MEDS: Cholecalciferol 1,000 UNITS (25 MCG) TAB PO SCH (08:48)
[2023-04-10] MEDS: Sodium Chloride 0.9% 1,000 ML IV SCH ×3 (08:48→23:30)
[2023-04-10] MEDS: Multivitamin W/ Minerals 1 TAB PO SCH (08:48)
[2023-04-10] MEDS: Famotidine 20 MG TAB PO SCH ×2 (08:48→21:23)
[2023-04-10] MEDS: Potassium Chloride 10 MEQ TAB PO SCH (08:48)
[2023-04-10] MEDS: Topiramate 25 MG TAB PO SCH (11:50)
[2023-04-10] MEDS ORDERED: Valproate Sodium 500 MG, Admixture Fee 1 EACH in Sodium Chloride 0.9% 100 ML IVPB SCH (14:00)
[2023-04-10] MEDS: Miconazole 2% Vaginal Cream 45 GM TUBE VAG SCH (21:22)
[2023-04-10] MEDS: Sertraline 100 MG TAB PO SCH (21:23)
[2023-04-10] MEDS ORDERED: fentaNYL 50 mcg/mL 1 mL Vial SLOW IVP SCH (23:00)
[2023-04-10] MEDS ORDERED: Ketorolac Tromethamine 30 MG/ML VIAL IVP SCH (23:15)
[2023-04-11] MEDS: Butalbital 50 MG/Aspirin 325 MG/Caffeine 40 MG CAPSULE PO PRN ×3 (00:54→19:28)
[2023-04-11] MEDS ORDERED: Polyethylene Glycol 3350 17 GM Packet PO PRN (01:17)
[2023-04-11] MEDS ORDERED: fentaNYL 50 mcg/mL 1 mL Vial SLOW IVP SCH (01:30)
[2023-04-11 04:26] LABS: #Eosinphils 0.3 thou/uL (0.0-0.7); #Monocytes 0.5 thou/uL (0.11-0.59); #Neutrophils 3.7 thou/uL (1.40-6.50); %Basophils 0.7 % (0.0-1.0); %Eosinophils 5.8 % (0.0-10.0); %Lymphocytes 21.7 % (21.0-51.0); %Neutrophils 62.1 % (42.0-75.0); Hematocrit 27.6 % (36.0-47.0); Hemoglobin 8.6 g/dL (12.0-16.0); Mean Corpuscular HGB CONC 31.2 g/dL (32.0-36.0); Mean Corpuscular Hemoglobin 24.1 pg (27.0-31.0); Mean Corpuscular Volume 77.3 fl (78.0-98.0); Mean Platelet Volume 9.7 fL (7.4-10.4); Platelet Count 234 10x3/uL (130-400); RBC Distribution Width 16.5 % (11.5-14.5); Red Blood Cell (RBC) Count 3.57 mill/uL (4.20-5.40); White Blood Cell (WBC) Count 5.9 10x3/uL (4.8-10.8)
[2023-04-11] MEDS: Acetaminophen 500 MG TAB PO PRN ×3 (04:32→22:25)
[2023-04-11 04:50] LABS: Anion Gap 10 mmol/L (10-20); BUN (Urea Nitrogen) 6 mg/dL (9.8-20.1); Calc. Creatinine Clearance 163 mL/min (70-130); Calcium 9.4 mg/dL (7.8-10.44); Carbon Dioxide 24 mmol/L (22-29); Chloride 109 mmol/L (98-107); Estimated GFR 107; Glucose 88 mg/dL (70-105); Magnesium 1.9 mg/dL (1.6-2.6); Potassium 3.3 mmol/L (3.5-5.1); Sodium 140 mmol/L (136-145)
[2023-04-11] MEDS: Cefepime 2 GM in Sodium Chloride 0.9% 100 ML IVPB SCH ×3 (06:02→22:22)
[2023-04-11] MEDS ORDERED: Electrolyte Replacement Protocol 1 EACH FS SCH (07:30)
[2023-04-11] MEDS ORDERED: Potassium Chloride 20 MEQ TAB PO SCH (08:00)
[2023-04-11] MEDS: Famotidine 20 MG TAB PO SCH (08:46)
[2023-04-11] MEDS: Gabapentin 300 MG CAP PO SCH ×2 (08:46→20:25)
[2023-04-11] MEDS: Cholecalciferol 1,000 UNITS (25 MCG) TAB PO SCH (08:46)
[2023-04-11] MEDS: Multivitamin W/ Minerals 1 TAB PO SCH (08:47)
[2023-04-11] MEDS: Sodium Chloride 0.9% 1,000 ML IV SCH (08:59)
[2023-04-11] MEDS ORDERED: Magnesium 2 GM/50 ML(in water) 2 GM in Premix 1 BAG IVPB SCH (09:00)
[2023-04-11] MEDS ORDERED: Metoclopramide HCl 10 MG/2 ML VIAL IVP SCH (10:00)
[2023-04-11] MEDS: Topiramate 25 MG TAB PO SCH ×2 (11:54→20:26)
[2023-04-11] MEDS ORDERED: Dexamethasone 10 MG/ML VIAL SLOW IVP SCH (12:45)
[2023-04-11] MEDS: Ketorolac Tromethamine 30 MG/ML VIAL IVP SCH ×2 (14:04→18:02)
[2023-04-11] MEDS ORDERED: Valproate Sodium 500 MG in Sodium Chloride 0.9% 100 ML IVPB SCH (16:00)
[2023-04-11] MEDS: Sertraline 100 MG TAB PO SCH (20:26)
[2023-04-11] MEDS: Dexamethasone 4 MG TAB PO SCH (20:26)
[2023-04-11] MEDS: Miconazole 2% Vaginal Cream 45 GM TUBE VAG SCH (20:30)
[2023-04-12] MEDS: Dexamethasone 4 MG TAB PO SCH ×4 (01:25→21:20)
[2023-04-12] MEDS: Ketorolac Tromethamine 30 MG/ML VIAL IVP SCH (01:29)
[2023-04-12] MEDS ORDERED: Valproate Sodium 500 MG in Sodium Chloride 0.9% 100 ML IVPB SCH (04:00)
[2023-04-12] MEDS: Acetaminophen 500 MG TAB PO PRN ×4 (04:33→22:32)
[2023-04-12 04:39] LABS: #Eosinphils 0.1 thou/uL (0.0-0.7); #Monocytes 0.5 thou/uL (0.11-0.59); #Neutrophils 5.5 thou/uL (1.40-6.50); %Basophils 0.1 % (0.0-1.0); %Lymphocytes 9.3 % (21.0-51.0); %Monocytes 7.2 % (0.0-10.0); %Neutrophils 81.4 % (42.0-75.0); Hematocrit 29.5 % (36.0-47.0); Hemoglobin 9.2 g/dL (12.0-16.0); Mean Corpuscular HGB CONC 31.2 g/dL (32.0-36.0); Mean Corpuscular Volume 76.8 fl (78.0-98.0); Mean Platelet Volume 10.1 fL (7.4-10.4); Platelet Count 290 10x3/uL (130-400); RBC Distribution Width 16.9 % (11.5-14.5); Red Blood Cell (RBC) Count 3.84 mill/uL (4.20-5.40); White Blood Cell (WBC) Count 6.8 10x3/uL (4.8-10.8)
[2023-04-12 05:05] LABS: Anion Gap 12 mmol/L (10-20); BUN (Urea Nitrogen) 8 mg/dL (9.8-20.1); Calc. Creatinine Clearance 149 mL/min (70-130); Calcium 10.1 mg/dL (7.8-10.44); Carbon Dioxide 22 mmol/L (22-29); Chloride 111 mmol/L (98-107); Estimated GFR 104; Glucose 116 mg/dL (70-105); Magnesium 2.4 mg/dL (1.6-2.6); Potassium 3.7 mmol/L (3.5-5.1); Sodium 141 mmol/L (136-145)
[2023-04-12] MEDS: Cefepime 2 GM in Sodium Chloride 0.9% 100 ML IVPB SCH ×3 (06:20→21:20)
[2023-04-12] MEDS: Topiramate 25 MG TAB PO SCH ×2 (10:06→21:19)
[2023-04-12] MEDS: Multivitamin W/ Minerals 1 TAB PO SCH (10:06)
[2023-04-12] MEDS: Gabapentin 300 MG CAP PO SCH ×2 (10:06→21:19)
[2023-04-12] MEDS: Cholecalciferol 1,000 UNITS (25 MCG) TAB PO SCH (10:07)
[2023-04-12] MEDS ORDERED: Ketorolac Tromethamine 30 MG/ML VIAL IVP PRN (11:41)
[2023-04-12] MEDS: Sertraline 100 MG TAB PO SCH (21:19)
[2023-04-12] MEDS: Miconazole 2% Vaginal Cream 45 GM TUBE VAG SCH (21:20)
[2023-04-13] MEDS: Dexamethasone 4 MG TAB PO SCH ×4 (03:26→21:26)
[2023-04-13] MEDS: Acetaminophen 500 MG TAB PO PRN ×4 (04:46→21:27)
[2023-04-13] MEDS: Cefepime 2 GM in Sodium Chloride 0.9% 100 ML IVPB SCH ×3 (07:06→21:27)
[2023-04-13 07:15] LABS: #Eosinphils 0.1 thou/uL (0.0-0.7); #Monocytes 0.4 thou/uL (0.11-0.59); #Neutrophils 4.5 thou/uL (1.40-6.50); %Basophils 0.2 % (0.0-1.0); %Eosinophils 2.2 % (0.0-10.0); %Lymphocytes 12.8 % (21.0-51.0); %Monocytes 7.3 % (0.0-10.0); %Neutrophils 76.5 % (42.0-75.0); Hematocrit 29.4 % (36.0-47.0); Mean Corpuscular HGB CONC 30.6 g/dL (32.0-36.0); Mean Corpuscular Hemoglobin 23.6 pg (27.0-31.0); Mean Corpuscular Volume 77.2 fl (78.0-98.0); Mean Platelet Volume 9.3 fL (7.4-10.4); Platelet Count 284 10x3/uL (130-400); RBC Distribution Width 17.4 % (11.5-14.5); Red Blood Cell (RBC) Count 3.81 mill/uL (4.20-5.40); White Blood Cell (WBC) Count 5.9 10x3/uL (4.8-10.8)
[2023-04-13 07:36] LABS: Anion Gap 10 mmol/L (10-20); BUN (Urea Nitrogen) 9 mg/dL (9.8-20.1); Calc. Creatinine Clearance 158 mL/min (70-130); Calcium 10.1 mg/dL (7.8-10.44); Carbon Dioxide 24 mmol/L (22-29); Chloride 110 mmol/L (98-107); Estimated GFR 106; Glucose 109 mg/dL (70-105); Magnesium 2.1 mg/dL (1.6-2.6); Potassium 3.6 mmol/L (3.5-5.1); Sodium 140 mmol/L (136-145)
[2023-04-13] MEDS: Multivitamin W/ Minerals 1 TAB PO SCH (09:24)
[2023-04-13] MEDS: Cholecalciferol 1,000 UNITS (25 MCG) TAB PO SCH (09:24)
[2023-04-13] MEDS: Topiramate 25 MG TAB PO SCH ×2 (09:24→21:26)
[2023-04-13] MEDS: Gabapentin 300 MG CAP PO SCH ×2 (09:24→21:26)
[2023-04-13] MEDS: hydrOXYzine 25 MG TAB PO PRN ×2 (09:30→22:12)
[2023-04-13] MEDS ORDERED: Magnesium 2 GM/50 ML(in water) 2 GM in Premix 1 BAG IVPB SCH (18:00)
[2023-04-13] MEDS ORDERED: Potassium Chloride 20 MEQ TAB PO SCH (18:00)
[2023-04-13] MEDS: Sertraline 100 MG TAB PO SCH (21:26)
[2023-04-13] MEDS: Miconazole 2% Vaginal Cream 45 GM TUBE VAG SCH (21:31)
[2023-04-14] MEDS: Dexamethasone 4 MG TAB PO SCH ×4 (06:07→18:33)
[2023-04-14] MEDS: Acetaminophen 500 MG TAB PO PRN ×3 (06:07→19:13)
[2023-04-14] MEDS: Cefepime 2 GM in Sodium Chloride 0.9% 100 ML IVPB SCH ×3 (06:08→21:29)
[2023-04-14] MEDS: Multivitamin W/ Minerals 1 TAB PO SCH (08:58)
[2023-04-14] MEDS: Cholecalciferol 1,000 UNITS (25 MCG) TAB PO SCH (08:58)
[2023-04-14] MEDS: Gabapentin 300 MG CAP PO SCH ×2 (08:58→21:28)
[2023-04-14] MEDS: Topiramate 25 MG TAB PO SCH ×2 (08:58→21:28)
[2023-04-14] MEDS ORDERED: Potassium Chloride 20 MEQ TAB PO SCH (12:15)
[2023-04-14] MEDS ORDERED: Electrolyte Replacement Protocol 1 EACH FS SCH (12:15)
[2023-04-14] MEDS ORDERED: Famotidine 20 MG TAB PO SCH (21:00)
[2023-04-14] MEDS: hydrOXYzine 25 MG TAB PO PRN (21:28)
[2023-04-14] MEDS: Sertraline 100 MG TAB PO SCH (21:29)
[2023-04-14] MEDS: Miconazole 2% Vaginal Cream 45 GM TUBE VAG SCH (21:29)
[2023-04-15] MEDS: Dexamethasone 4 MG TAB PO SCH ×4 (01:39→18:15)
[2023-04-15] MEDS: Acetaminophen 500 MG TAB PO PRN ×4 (02:00→20:34)
[2023-04-15 03:31] LABS: #Eosinphils 0.2 thou/uL (0.0-0.7); #Monocytes 0.7 thou/uL (0.11-0.59); #Neutrophils 5.7 thou/uL (1.40-6.50); %Basophils 0.1 % (0.0-1.0); %Lymphocytes 12.6 % (21.0-51.0); %Monocytes 9.3 % (0.0-10.0); %Neutrophils 75.1 % (42.0-75.0); Hematocrit 30.6 % (36.0-47.0); Hemoglobin 9.2 g/dL (12.0-16.0); Mean Corpuscular HGB CONC 30.1 g/dL (32.0-36.0); Mean Corpuscular Hemoglobin 23.5 pg (27.0-31.0); Mean Corpuscular Volume 78.1 fl (78.0-98.0); Mean Platelet Volume 9.1 fL (7.4-10.4); Platelet Count 313 10x3/uL (130-400); RBC Distribution Width 17.6 % (11.5-14.5); Red Blood Cell (RBC) Count 3.92 mill/uL (4.20-5.40); White Blood Cell (WBC) Count 7.6 10x3/uL (4.8-10.8)
[2023-04-15 03:50] LABS: Anion Gap 15 mmol/L (10-20); BUN (Urea Nitrogen) 12 mg/dL (9.8-20.1); Calc. Creatinine Clearance 156 mL/min (70-130); Calcium 9.9 mg/dL (7.8-10.44); Carbon Dioxide 22 mmol/L (22-29); Chloride 109 mmol/L (98-107); Estimated GFR 106; Glucose 114 mg/dL (70-105); Potassium 4.5 mmol/L (3.5-5.1); Sodium 141 mmol/L (136-145)
[2023-04-15] MEDS: Cefepime 2 GM in Sodium Chloride 0.9% 100 ML IVPB SCH ×3 (05:49→22:15)
[2023-04-15] MEDS: Topiramate 25 MG TAB PO SCH ×2 (08:15→20:36)
[2023-04-15] MEDS: Cholecalciferol 1,000 UNITS (25 MCG) TAB PO SCH (08:15)
[2023-04-15] MEDS: Multivitamin W/ Minerals 1 TAB PO SCH (08:16)
[2023-04-15] MEDS: Gabapentin 300 MG CAP PO SCH ×2 (08:16→20:35)
[2023-04-15 13:24] LABS: Magnesium 2.2 mg/dL (1.6-2.6); Phosphorus 3.1 mg/dL (2.3-4.7)
[2023-04-15] MEDS: Sertraline 100 MG TAB PO SCH (20:35)
[2023-04-15] MEDS: Miconazole 2% Vaginal Cream 45 GM TUBE VAG SCH (20:36)
[2023-04-15] MEDS: hydrOXYzine 25 MG TAB PO PRN (22:15)
[2023-04-16] MEDS: Dexamethasone 4 MG TAB PO SCH ×3 (00:21→12:01)
[2023-04-16 05:24] LABS: Anion Gap 14 mmol/L (10-20); BUN (Urea Nitrogen) 12 mg/dL (9.8-20.1); Calc. Creatinine Clearance 151 mL/min (70-130); Calcium 10.4 mg/dL (7.8-10.44); Carbon Dioxide 24 mmol/L (22-29); Chloride 108 mmol/L (98-107); Estimated GFR 105; Glucose 112 mg/dL (70-105); Magnesium 2.1 mg/dL (1.6-2.6); Potassium 4.5 mmol/L (3.5-5.1); Sodium 141 mmol/L (136-145)
[2023-04-16] MEDS: Acetaminophen 500 MG TAB PO PRN ×2 (06:03→12:01)
[2023-04-16] MEDS: Cefepime 2 GM in Sodium Chloride 0.9% 100 ML IVPB SCH ×2 (06:03→14:11)
[2023-04-16] MEDS: Cholecalciferol 1,000 UNITS (25 MCG) TAB PO SCH (09:38)
[2023-04-16] MEDS: Topiramate 25 MG TAB PO SCH (09:38)
[2023-04-16] MEDS: Multivitamin W/ Minerals 1 TAB PO SCH (09:38)
[2023-04-16] MEDS: Gabapentin 300 MG CAP PO SCH (09:51)
[2023-04-16 12:41] VITALS: BP 121/77; TEMP 97.5
== END 2023-04-16 15:55 | disposition home or self-care (01) | DRG 97 ==
LOC: ERS 19:47 → T4-A 04-06 00:19 → 2SE 04-06 17:24
PROVIDERS: ADMIT Student in an Organized Health Care Education/Training Program; ATTEND Family Medicine
PROC: 009U3ZX Drainage of Spinal Canal, Percutaneous Approach, Diagnostic (ICD-10-PCS; principal; 2023-04-07)
PROC: B01B1ZZ Fluoroscopy of Spinal Cord using Low Osmolar Contrast (ICD-10-PCS; 2023-04-07)
PROC: 02HV33Z Insertion of Infusion Device into Superior Vena Cava, Percutaneous Approach (ICD-10-PCS; 2023-04-13)
PROC: B5181ZA Fluoroscopy of Superior Vena Cava using Low Osmolar Contrast, Guidance (ICD-10-PCS; 2023-04-13)
PROC: B548ZZA Ultrasonography of Superior Vena Cava, Guidance (ICD-10-PCS; 2023-04-13)
DX: A86 Unspecified viral encephalitis (principal); G00.9 Bacterial meningitis, unspecified; G93.41 Metabolic encephalopathy; E87.1 Hypo-osmolality and hyponatremia; G91.1 Obstructive hydrocephalus; G97.63 Postprocedural seroma of a nervous system organ or structure following a nervous system procedure; M25.551 Pain in right hip; M25.552 Pain in left hip; F41.9 Anxiety disorder, unspecified; F32.A Depression, unspecified; E66.9 Obesity, unspecified; I10 Essential (primary) hypertension; M06.9 Rheumatoid arthritis, unspecified; E04.1 Nontoxic single thyroid nodule; D72.829 Elevated white blood cell count, unspecified; R33.9 Retention of urine, unspecified; E87.6 Hypokalemia; R00.0 Tachycardia, unspecified; I95.9 Hypotension, unspecified; Z91.040 Latex allergy status; Z91.018 Allergy to other foods; Z88.8 Allergy status to other drugs, medicaments and biological substances; Z79.899 Other long term (current) drug therapy; Z90.49 Acquired absence of other specified parts of digestive tract; Z98.890 Other specified postprocedural states; Z98.891 History of uterine scar from previous surgery; Z82.49 Family history of ischemic heart disease and other diseases of the circulatory system; Z83.3 Family history of diabetes mellitus; Z98.1 Arthrodesis status
CPT/HCPCS: 36415; 36416; 36569; 62270; 70450; 70553; 71045; 72158; 80048; 80053; 80076; 80202; 81001; 82945; 83036; 83605; 83735; 84100; 84157; 84443; 84484; 85025; 85060; 86592; 86850; 86870; 86900; 86901; 86922; 87040; 87070; 87077; 87186; 87205; 87498; 87529; 87798; 87899; 89051; 93005; 93010; 93306; 93970; 96374; 96375; A9579; C1751; J0133; J0692; J0696; J1100; J1170; J1200; J1650; J1885; J2060; J2250; J2270; J2272; J2405; J2704; J2765; J3010; J3370; J3475; J3480; J3490; J7030; J7050; J8540; S0028